=== PATIENT | male | born 1955 | race Two or more races ===

== ENCOUNTER 2022-02-12 06:20 | Day surgery (SDC) | payer OTHER ==
[~2022-02-12 06:20] MED LIST: ADULT LOW DOSE81 M1 PO; ALPRAZOLAM XR1 MG PO; ATORVASTATIN CA40 MG PO; BRILINTA60 MG PO; FARXIGA10 MG PO; FENOFIBRAT; FENOFIBRAT PO; GRALISE600 MG PO; METFORMIN HCL500 MG PO; REMERON15 MG; TOPROL XL100 M1 PO; VITAMIN E PO; VITAMIN PO; ZESTRIL40 M1 PO
[2022-02-12] MEDS ORDERED: ULTRACET PO (11:45)
== END 2022-02-12 14:30 | disposition home or self-care (01) ==
LOC: CIR.AMB 06:20
PROVIDERS: ATTEND Surgery
DX: C20 Malignant neoplasm of rectum (principal); R59.0 Localized enlarged lymph nodes; K62.5 Hemorrhage of anus and rectum; Z20.822 Contact with and (suspected) exposure to COVID-19